=== PATIENT | female | born 1955 ===

== ENCOUNTER 2023-04-10 06:27 | Day surgery (SDC) | payer OTHER | END 2023-04-10 10:40 | disposition home or self-care (01) | LOC: AMB-ENDOS 06:27 | PROVIDERS: ATTEND Surgery | DX: K57.30 Diverticulosis of large intestine without perforation or abscess without bleeding (principal); R10.9 Unspecified abdominal pain; R19.4 Change in bowel habit; K64.8 Other hemorrhoids ==

== ENCOUNTER 2025-01-24 07:42 | Inpatient (IN) | payer OTHER ==
[~2025-01-24] VITALS: Ht 160 cm; Wt 72.6 kg
[2025-01-24] MEDS ORDERED: ZOLOFT100 MG PO (08:17)
[2025-01-24] MEDS ORDERED: LIPITOR40 MG PO (08:26)
[2025-01-24] MEDS ORDERED: DICY20TA PO (08:27)
[2025-01-24] MEDS ORDERED: ALLEGRA ALLERGY60 MG PO (08:27)
[2025-01-24] MEDS ORDERED: CENTRUM ADULT80 MCG PO (08:28)
[2025-01-28] MEDS ORDERED: BUPIVACAINE HCL 30 ML VIAL IJ ONE (12:00)
[2025-01-28] MEDS ORDERED: CEFTRIAXONE SODIUM 2,000 MG VIAL IV ONE (12:00)
[2025-01-28] MEDS ORDERED: LIDOCAINE HCL 1%/EPINEPHRINE 20ML VIAL IJ ONE (12:00)
[2025-01-28] MEDS ORDERED: METRONIDAZOLE/SODIUM CHLORIDE 500 MG/100 ML PIGGYBACK IV ONE (12:00)
[2025-01-28] MEDS ORDERED: RINGERS SOLUTION,LACTATED 1,000 ML IV SCH (13:15)
[2025-01-28] MEDS ORDERED: ENALAPRILAT DIHYDRATE 1.25 MG/ML VIAL IV PRN (13:15)
[2025-01-28] MEDS ORDERED: ONDANSETRON HCL 2 MG/ML VIAL IV PRN (13:15)
[2025-01-28] MEDS ORDERED: MORPHINE SULFATE 4 MG/ML CARTRIDGE IV PRN (13:15)
[2025-01-28] MEDS ORDERED: OxyCODONE HCL 5 MG TABLET (ROXICODONE) PO PRN (13:15)
[2025-01-28] MEDS ORDERED: SUGAMMADEX SODIUM 200 MG/2 ML VIAL IV ONE (13:30)
[2025-01-28] MEDS ORDERED: MORPHINE SULFATE 4 MG/ML VIAL IV ONE (13:55)
[2025-01-28] MEDS ORDERED: LACTOBACILLUS ACIDOPHILUS 1 CAP CAP PO SCH (17:00)
[2025-01-28] MEDS ORDERED: CIPROFLOXACIN IN 5 % DEXTROSE 400 MG/200 ML PIGGYBAG IV SCH (17:00)
[2025-01-28] MEDS ORDERED: METRONIDAZOLE/SODIUM CHLORIDE 500 MG/100 ML PIGGYBACK IV SCH (17:00)
[2025-01-28] MEDS ORDERED: TAMSULOSIN HCL 0.4 MG CAP PO SCH (17:00)
[2025-01-28] MEDS ORDERED: HYOSCYAMINE SULFATE 0.125 MG TAB.SUBL SL SCH (17:00)
[2025-01-28] MEDS ORDERED: ACETAMINOPHEN 500 MG GEL..CAP PO SCH (18:00)
[2025-01-28] MEDS ORDERED: GABAPENTIN 300 MG CAPSULE PO SCH (21:00)
[2025-01-28] MEDS ORDERED: FAMOTIDINE/PF 20 MG/2 ML VIAL IV PUSH SCH (21:00)
[2025-01-29 00:59] VITALS: BP 110/71; O2SAT 97
[2025-01-29 08:00] VITALS: BP 93/56; O2SAT 94
[2025-01-29 08:53] LABS: BASO % 0.4 % (0.1-1.2); EOS # 0.08 (0.04-0.54); EOS % 1.0 % (0.7-7.0); LYMPH # 0.87 (1.18-3.74); LYMPH % 11.1 % (19.3-53.1); MEAN PLATELET VOLUME 9.90 fl (9.4-12.4); MONO # 0.78 (0.24-0.82); MONO % 9.9 % (4.7-12.5); NEUT # 6.09 (1.56-6.13); NEUT % 77.3 % (34.0-71.1); RED CELL DISTRIBUTION WIDTH 13.4 % (11.6-14.4)
[2025-01-29 09:33] LABS: BUN CREA RATIO 15.0 (7.0-25.0); CREATININE SERUM 0.82 mg/dL (0.55-1.02); GFR 68.72; GLUCOSE FASTING 96.0 mg/dL (65-100); OSMOLALITY SERUM 285.0 MOSM/KG (275-295)
[2025-01-29 16:00] VITALS: BP 110/70; O2SAT 94
[2025-01-29] MEDS ORDERED: ATORVASTATIN CALCIUM 40 MG TABLET PO SCH (17:00)
[2025-01-29] MEDS ORDERED: ENOXAPARIN SODIUM 40 MG/0.4 ML SYRINGE SUBCUTANEO SCH (17:00)
[2025-01-29] MEDS ORDERED: SERTRALINE HCL 100 MG TABLET PO SCH (21:00)
[2025-01-30 01:16] VITALS: BP 122/74; O2SAT 98
[2025-01-30 08:06] LABS: BASO % 0.3 % (0.1-1.2); EOS # 0.31 (0.04-0.54); EOS % 4.6 % (0.7-7.0); LYMPH # 0.88 (1.18-3.74); LYMPH % 13.1 % (19.3-53.1); MEAN PLATELET VOLUME 10.30 fl (9.4-12.4); MONO # 0.65 (0.24-0.82); MONO % 9.7 % (4.7-12.5); NEUT # 4.85 (1.56-6.13); NEUT % 72.0 % (34.0-71.1); RED CELL DISTRIBUTION WIDTH 13.2 % (11.6-14.4)
[2025-01-30 08:28] LABS: BUN CREA RATIO 9.0 (7.0-25.0); CREATININE SERUM 0.75 mg/dL (0.55-1.02); GFR 76.17; GLUCOSE FASTING 86.0 mg/dL (65-100); OSMOLALITY SERUM 286.0 MOSM/KG (275-295)
[2025-01-30] MEDS ORDERED: ENOXAPARIN SODIUM 40 MG/0.4 ML SYRINGE SUBCUTANEO SCH (09:00)
[2025-01-30 10:28] VITALS: BP 129/80; O2SAT 95
[2025-01-30] MEDS ORDERED: CELECOXIB 200 MG CAPSULE PO PRN (14:00)
[2025-01-30 16:00] VITALS: BP 145/84; O2SAT 95
[2025-01-31 01:27] VITALS: BP 124/69; O2SAT 96
[2025-01-31 07:04] LABS: BASO % 0.2 % (0.1-1.2); EOS # 0.42 (0.04-0.54); EOS % 7.3 % (0.7-7.0); LYMPH # 0.84 (1.18-3.74); LYMPH % 14.7 % (19.3-53.1); MEAN PLATELET VOLUME 9.80 fl (9.4-12.4); MONO # 0.49 (0.24-0.82); MONO % 8.6 % (4.7-12.5); NEUT # 3.96 (1.56-6.13); NEUT % 69.0 % (34.0-71.1); RED CELL DISTRIBUTION WIDTH 12.8 % (11.6-14.4)
[2025-01-31 07:33] LABS: BUN CREA RATIO 5.0 (7.0-25.0); CREATININE SERUM 0.74 mg/dL (0.55-1.02); GFR 77.36; GLUCOSE FASTING 104.0 mg/dL (65-100); OSMOLALITY SERUM 286.0 MOSM/KG (275-295)
[2025-01-31 08:00] VITALS: BP 138/79; O2SAT 95
[2025-01-31] MEDS ORDERED: POTASSIUM CHLORIDE 8 MEQ TABLET PO NR (10:30)
[2025-01-31] MEDS ORDERED: NAPH,MB-DB/K PH,MBDB 1 PKT PACKET PO NR (10:30)
[2025-01-31 16:00] VITALS: BP 160/80; O2SAT 96
[2025-02-01 01:34] VITALS: BP 114/68; O2SAT 98
[2025-02-01] MEDS ORDERED: PANTOPRAZOLE SODIUM 40 MG/VIAL VIAL IV SCH (06:00)
[2025-02-01] MEDS ORDERED: HYOSCYAMINE0.125 M1 SL (08:08)
[2025-02-01] MEDS ORDERED: INTESTINEX680 M1 PO (08:08)
== END 2025-02-01 14:18 | disposition home or self-care (01) | DRG 330 ==
LOC: O/R 01-28 08:16 → SURH 01-28 08:16 → O/R 01-28 08:38 → SURH 01-28 10:45
PROVIDERS: Internal Medicine; Internal Medicine Geriatric Medicine; ADMIT Surgery; ATTEND Surgery
PROC: 0DBP4ZZ Excision of Rectum, Percutaneous Endoscopic Approach (ICD-10-PCS; 2025-01-28)
PROC: 0DNW4ZZ Release Peritoneum, Percutaneous Endoscopic Approach (ICD-10-PCS; 2025-01-28)
PROC: 0DJD8ZZ Inspection of Lower Intestinal Tract, Via Natural or Artificial Opening Endoscopic (ICD-10-PCS; 2025-01-28)
PROC: 0DTN4ZZ Resection of Sigmoid Colon, Percutaneous Endoscopic Approach (ICD-10-PCS; principal; 2025-01-28 10:45)
DX: K57.30 Diverticulosis of large intestine without perforation or abscess without bleeding (principal); K56.51 Intestinal adhesions [bands], with partial obstruction; K64.8 Other hemorrhoids; K59.09 Other constipation; E87.6 Hypokalemia; D64.9 Anemia, unspecified; E83.39 Other disorders of phosphorus metabolism; R10.9 Unspecified abdominal pain; I10 Essential (primary) hypertension